=== PATIENT | male | born 1960 | race African-American/Black ===

== ENCOUNTER 2022-11-17 08:24 | Day surgery (SDC) | payer OTHER ==
[2022-11-15 16:14] VITALS: BMI 22.0
[2022-11-17] MEDS ORDERED: fentaNYL 50 mcg/mL 1 mL Vial ONE (10:16)
[2022-11-17] MEDS ORDERED: PROPOFOL 40 ML ONE (10:16)
[2022-11-17] MEDS ORDERED: Lidocaine 1% PF 5 ML VIAL ONE (10:16)
[2022-11-17] MEDS ORDERED: PROPOFOL 20 ML ONE ×2 (10:50→11:16)
== END 2022-11-17 12:20 | disposition home or self-care (01) ==
LOC: CSHSDC 08:24
PROVIDERS: ATTEND Internal Medicine Gastroenterology
PROC: 0DJD8ZZ Inspection of Lower Intestinal Tract, Via Natural or Artificial Opening Endoscopic (ICD-10-PCS; principal; 2022-11-17)
PROC: 0D750ZZ Dilation of Esophagus, Open Approach (ICD-10-PCS; principal; 2022-11-17)
PROC: 0DJ08ZZ Inspection of Upper Intestinal Tract, Via Natural or Artificial Opening Endoscopic (ICD-10-PCS; 2022-11-17)
DX: Z12.11 Encounter for screening for malignant neoplasm of colon (principal); K64.9 Unspecified hemorrhoids; I10 Essential (primary) hypertension; E11.9 Type 2 diabetes mellitus without complications; K21.9 Gastro-esophageal reflux disease without esophagitis; M10.9 Gout, unspecified; J44.9 Chronic obstructive pulmonary disease, unspecified; C09.9 Malignant neoplasm of tonsil, unspecified; F17.200 Nicotine dependence, unspecified, uncomplicated; F10.10 Alcohol abuse, uncomplicated; Z88.6 Allergy status to analgesic agent; Z79.899 Other long term (current) drug therapy
CPT/HCPCS: 36416; J2704; J3010